=== PATIENT | female | born 1950 | race African-American/Black ===

== ENCOUNTER 2020-11-05 18:15 | Inpatient (IN) | payer MEDICARE, MEDICAID ==
[2020-11-05 19:33] LABS: Hemoglobin 5.5 g/dL (12.0-15.5); Mean Corpuscular HGB CONC 33.7 g/dL (32.0-36.0); Mean Corpuscular Hemoglobin 26.2 pg (27.0-33.0); Mean Corpuscular Volume 77.6 fl (81.6-98.3); Mean Platelet Volume 8.4 fl (7.4-10.4); Platelet Count 86 10x3/uL (150-450); RBC Distribution Width 16.5 % (11.5-14.5); White Blood Cell (WBC) Count 10.3 10x3/uL (3.5-10.5)
[2020-11-05 19:46] LABS: ALT (SGPT) 15 U/L (8-55); AST (SGOT) 10 U/L (5-34); Alkaline Phosphatase 71 U/L (40-110); Anion Gap 16 mmol/L (10-20); BUN (Urea Nitrogen) 38 mg/dL (9.8-20.1); Bilirubin, Total 0.6 mg/dL (0.2-1.2); Calc. Creatinine Clearance 0 mL/min (70-130); Calcium 7.7 mg/dL (7.8-10.44); Carbon Dioxide 26 mmol/L (23-31); Chloride 99 mmol/L (98-107); Globulin 3.4 g/dL (2.4-3.5); Glucose 154 mg/dL (80-115); Potassium 3.8 mmol/L (3.5-5.1); Protein, Total 6.4 g/dL (5.8-8.1); Sodium 137 mmol/L (136-145)
[2020-11-05 19:49] LABS: PTT 25.6 sec (22.0-33.0); Prothrombin Time 11.2 sec (9.5-12.1)
[2020-11-05 20:08] LABS: Band 3 % (5-11); Lymphocytes 9 % (21-51); Monocytes 3 % (0-10); Neutrophil 84 % (42-75); Reactive Lymphocytes 1 % (0-10)
[2020-11-05 20:09] LABS: MDiff Complete? YES
[2020-11-05 20:10] LABS: Hypochromia MODERATE=16-30 cells (100X) (0-5/hpf)
[2020-11-05 20:12] LABS: Platelet Morphology Comment Appears Decreased
[2020-11-05 20:41] LABS: Anisocytosis SLIGHT = 6-15 cells (100X) (0-5/hpf); Manual Diff?? YES
[2020-11-05 20:42] LABS: Microcytosis MODERATE=15-30 cells (100X) (0-5/hpf)
[2020-11-06] MEDS ORDERED: Bisacodyl 10 MG SUPP PR SCH (05:00)
[2020-11-06] MEDS: Montelukast Sodium 10 mg Tablet PO SCH (07:59)
[2020-11-06] MEDS: cloNIDine 0.1 MG TAB PO SCH ×2 (07:59→18:43)
[2020-11-06] MEDS: Amlodipine 5 MG TAB PO SCH (07:59)
[2020-11-06] MEDS: Multivit, Therapeutic 1 TAB PO SCH (07:59)
[2020-11-06] MEDS: Amiodarone 200 MG TAB PO SCH ×2 (07:59→20:58)
[2020-11-06] MEDS: Magnesium Oxide 400 MG TAB PO SCH (07:59)
[2020-11-06] MEDS: Folic Acid 1 MG TAB PO SCH (07:59)
[2020-11-06 13:33] LABS: SARS-CoV-2 PCR by NAA Not Detected (NotDetected)
[2020-11-06] MEDS ORDERED: Heparin 10,000 UNITS/ 10 ML VIAL FS SCH (14:15)
[2020-11-06 17:20] LABS: Iron 20 ug/dL (50-170); Iron Binding Capacity, Total 115 mcg/dL (265-497)
[2020-11-07] MEDS ORDERED: cloNIDine 0.1 MG TAB PO SCH (04:00)
[2020-11-07 05:14] LABS: #Eosinphils 0.1 10x3/uL (0.0-0.5); #Monocytes 0.3 10x3/uL (0.0-1.1); #Neutrophils 3.5 10x3/uL (1.5-8.4); %Basophils 0.2 % (0.0-2.0); %Eosinophils 1.9 % (0.0-6.0); %Lymphocytes 23.4 % (18.0-47.0); %Neutrophils 67.6 % (40.0-75.0); Hemoglobin 7.3 g/dL (12.0-15.5); Mean Corpuscular HGB CONC 34.1 g/dL (32.0-36.0); Mean Corpuscular Hemoglobin 27.2 pg (27.0-33.0); Mean Corpuscular Volume 79.9 fl (81.6-98.3); Mean Platelet Volume 8.5 fl (7.4-10.4); Platelet Count 64 10x3/uL (150-450); RBC Distribution Width 17.3 % (11.5-14.5); Red Blood Cell (RBC) Count 2.68 10x6/uL (3.90-5.03); White Blood Cell (WBC) Count 5.2 10x3/uL (3.5-10.5)
[2020-11-07 05:39] LABS: Albumin 2.6 g/dL (3.4-4.8); Anion Gap 13 mmol/L (10-20); BUN (Urea Nitrogen) 19 mg/dL (9.8-20.1); BUN/Creatinine Ratio 10.33; Calc. Creatinine Clearance 31 mL/min (70-130); Calcium 7.3 mg/dL (7.8-10.44); Carbon Dioxide 27 mmol/L (23-31); Chloride 103 mmol/L (98-107); Glucose 88 mg/dL (80-115); Potassium 3.7 mmol/L (3.5-5.1); Sodium 139 mmol/L (136-145)
[2020-11-07 05:44] LABS: Phosphorus 1.9 mg/dL (2.3-4.7)
[2020-11-07] MEDS: Amlodipine 5 MG TAB PO SCH (08:20)
[2020-11-07] MEDS: Magnesium Oxide 400 MG TAB PO SCH (08:20)
[2020-11-07] MEDS: Folic Acid 1 MG TAB PO SCH (08:20)
[2020-11-07] MEDS: Amiodarone 200 MG TAB PO SCH ×2 (08:20→21:23)
[2020-11-07] MEDS: Montelukast Sodium 10 mg Tablet PO SCH (08:20)
[2020-11-07] MEDS: Multivit, Therapeutic 1 TAB PO SCH (08:21)
[2020-11-07] MEDS: cloNIDine 0.1 MG TAB PO SCH ×2 (08:21→21:23)
[2020-11-07] MEDS ORDERED: EPOETIN ALFA-EPBX (ESRD) 10,000 UNIT/ML VIAL SC SCH (10:00)
[2020-11-07] MEDS ORDERED: Milk Of Magnesia 30 ML UDCUP PO PRN (13:05)
[2020-11-07] MEDS ORDERED: Amlodipine 5 MG TAB PO SCH (15:00)
[2020-11-07] MEDS: hydrALAZINE 25 MG TAB PO SCH ×2 (15:19→21:24)
[2020-11-07] MEDS ORDERED: Bisacodyl 10 MG SUPP PR PRN (20:54)
[2020-11-08] MEDS: Zolpidem Tartrate 5 MG TAB PO PRN ×2 (00:44→20:12)
[2020-11-08] MEDS ORDERED: Acetaminophen 325 MG TAB PO SCH (00:45)
[2020-11-08] MEDS: cloNIDine 0.1 MG TAB PO SCH ×2 (09:09→20:12)
[2020-11-08] MEDS: Multivit, Therapeutic 1 TAB PO SCH (09:09)
[2020-11-08] MEDS: Amiodarone 200 MG TAB PO SCH ×2 (09:10→20:12)
[2020-11-08] MEDS: Montelukast Sodium 10 mg Tablet PO SCH (09:10)
[2020-11-08] MEDS: Folic Acid 1 MG TAB PO SCH (09:10)
[2020-11-08] MEDS: Magnesium Oxide 400 MG TAB PO SCH (09:10)
[2020-11-08] MEDS: hydrALAZINE 25 MG TAB PO SCH ×3 (09:10→20:12)
[2020-11-08] MEDS: Amlodipine 5 MG TAB PO SCH (09:11)
[2020-11-08] MEDS: Bisacodyl 10 MG SUPP PR PRN (11:21)
[2020-11-08 15:17] LABS: Bilirubin Neg (Negative); Blood, Urine 50 (Negative); Clarity Clear (Clear); Glucose, Urine (Dipstick) Normal (Negative); Ketone, Urine Negative (Negative); Leukocyte 25 (Negative); Nitrite Negative (Negative); Protein, Urine (Dipstick) 100 mg/dl (Neg-Trace); Urobilinogen Normal mg/dL (Less than 2)
[2020-11-08 15:19] LABS: Urine Culture Reflex No No
[2020-11-08 15:39] LABS: Squamous Epithelial 0-3 HPF (0-3)
[2020-11-08 15:40] LABS: Bacteria/HPF 2+ HPF (None Seen)
[2020-11-08 19:04] LABS: 24 Hr Creatinine 179.04 mg/24 hr (710-1650); Creatinine, Urine 22.38 mg/dL (47-110)
[2020-11-08 19:26] LABS: Body Surface Area 1.7
[2020-11-08 19:48] LABS: Creatinine, Urine 22.38 mg/dL (47-110)
[2020-11-09] MEDS ORDERED: Acetaminophen 325 MG TAB PO PRN (00:57)
[2020-11-09 05:10] LABS: #Eosinphils 0.1 10x3/uL (0.0-0.5); #Monocytes 0.3 10x3/uL (0.0-1.1); #Neutrophils 2.9 10x3/uL (1.5-8.4); %Basophils 0.2 % (0.0-2.0); %Eosinophils 1.9 % (0.0-6.0); %Lymphocytes 28.1 % (18.0-47.0); %Monocytes 6.9 % (0.0-10.0); %Neutrophils 61.8 % (40.0-75.0); Hemoglobin 7.1 g/dL (12.0-15.5); Mean Corpuscular Hemoglobin 26.1 pg (27.0-33.0); Mean Platelet Volume 8.8 fl (7.4-10.4); Platelet Count 67 10x3/uL (150-450); RBC Distribution Width 17.5 % (11.5-14.5); Red Blood Cell (RBC) Count 2.72 10x6/uL (3.90-5.03); White Blood Cell (WBC) Count 4.7 10x3/uL (3.5-10.5)
[2020-11-09 05:26] LABS: Anion Gap 14 mmol/L (10-20); BUN (Urea Nitrogen) 33 mg/dL (9.8-20.1); CRP (Inflammatory) 8.02 mg/dL (= or < 0.5); Calc. Creatinine Clearance 16 mL/min (70-130); Calcium 7.1 mg/dL (7.8-10.44); Carbon Dioxide 26 mmol/L (23-31); Chloride 101 mmol/L (98-107); Glucose 92 mg/dL (80-115); Potassium 4.1 mmol/L (3.5-5.1); Sodium 137 mmol/L (136-145)
[2020-11-09] MEDS ORDERED: EPOETIN ALFA-EPBX (ESRD) 4,000 UNIT/ML VIAL IVP PRN (07:34)
[2020-11-09] MEDS: Amiodarone 200 MG TAB PO SCH ×2 (10:11→20:15)
[2020-11-09] MEDS: cloNIDine 0.1 MG TAB PO SCH ×2 (10:11→20:15)
[2020-11-09] MEDS: hydrALAZINE 25 MG TAB PO SCH ×3 (10:11→20:15)
[2020-11-09] MEDS: Amlodipine 5 MG TAB PO SCH (10:11)
[2020-11-09] MEDS: Magnesium Oxide 400 MG TAB PO SCH (10:11)
[2020-11-09] MEDS: Folic Acid 1 MG TAB PO SCH (10:11)
[2020-11-09] MEDS: Multivit, Therapeutic 1 TAB PO SCH (10:12)
[2020-11-09] MEDS: Montelukast Sodium 10 mg Tablet PO SCH (10:12)
[2020-11-09] MEDS ORDERED: Iron, Sodium Ferric Gluconate 250 MG in Sodium Chloride 0.9% 100 ML IVPB SCH (17:00)
[2020-11-09] MEDS: Zolpidem Tartrate 5 MG TAB PO PRN (20:15)
[2020-11-09] MEDS: Cefepime 1 GM in Sodium Chloride 0.9% 100 ML IVPB SCH (20:15)
[2020-11-09] MEDS: Bisacodyl 10 MG SUPP PR PRN (20:15)
[2020-11-10 05:20] LABS: Hemoglobin 7.1 g/dL (12.0-15.5); Platelet Count 77 10x3/uL (150-450)
[2020-11-10] MEDS: Magnesium Oxide 400 MG TAB PO SCH (09:38)
[2020-11-10] MEDS: Multivit, Therapeutic 1 TAB PO SCH (09:38)
[2020-11-10] MEDS: Amiodarone 200 MG TAB PO SCH ×2 (09:39→20:40)
[2020-11-10] MEDS: Amlodipine 5 MG TAB PO SCH (09:40)
[2020-11-10] MEDS: Folic Acid 1 MG TAB PO SCH (09:40)
[2020-11-10] MEDS: cloNIDine 0.1 MG TAB PO SCH ×2 (09:40→20:41)
[2020-11-10] MEDS: Montelukast Sodium 10 mg Tablet PO SCH (09:41)
[2020-11-10] MEDS: hydrALAZINE 25 MG TAB PO SCH ×3 (09:41→20:40)
[2020-11-10] MEDS: Cefepime 1 GM in Sodium Chloride 0.9% 100 ML IVPB SCH ×2 (09:42→20:39)
[2020-11-10 13:47] VITALS: BMI 28.1
[2020-11-10] MEDS: Zolpidem Tartrate 5 MG TAB PO PRN (21:04)
[2020-11-11] MEDS ORDERED: Lidocaine 2% Jelly 5 ML TUBE TOP SCH (10:00)
[2020-11-11] MEDS: hydrALAZINE 25 MG TAB PO SCH ×3 (11:16→21:25)
[2020-11-11] MEDS: Amiodarone 200 MG TAB PO SCH ×2 (11:16→21:26)
[2020-11-11] MEDS: cloNIDine 0.1 MG TAB PO SCH ×2 (11:16→21:26)
[2020-11-11] MEDS: Folic Acid 1 MG TAB PO SCH (11:16)
[2020-11-11] MEDS: Multivit, Therapeutic 1 TAB PO SCH (11:16)
[2020-11-11] MEDS: Magnesium Oxide 400 MG TAB PO SCH (11:16)
[2020-11-11] MEDS: Montelukast Sodium 10 mg Tablet PO SCH (11:16)
[2020-11-11] MEDS: Cefepime 1 GM in Sodium Chloride 0.9% 100 ML IVPB SCH ×2 (11:17→21:27)
[2020-11-11] MEDS: Amlodipine 5 MG TAB PO SCH (11:17)
[2020-11-11] MEDS: Bisacodyl 5 MG TAB PO PRN (21:25)
[2020-11-11] MEDS: Zolpidem Tartrate 5 MG TAB PO PRN (21:56)
[2020-11-12] MEDS ORDERED: Vancomycin HCl 0.75 GM in Sodium Chloride 0.9% 250 ML 250 ML IVPB SCH (08:00)
[2020-11-12] MEDS: Amlodipine 5 MG TAB PO SCH (08:43)
[2020-11-12] MEDS: Multivit, Therapeutic 1 TAB PO SCH (08:43)
[2020-11-12] MEDS: Amiodarone 200 MG TAB PO SCH (08:44)
[2020-11-12] MEDS: cloNIDine 0.1 MG TAB PO SCH (08:44)
[2020-11-12] MEDS: Folic Acid 1 MG TAB PO SCH (08:44)
[2020-11-12] MEDS: Magnesium Oxide 400 MG TAB PO SCH (08:44)
[2020-11-12] MEDS: Montelukast Sodium 10 mg Tablet PO SCH (08:44)
[2020-11-12] MEDS: Bisacodyl 5 MG TAB PO PRN (08:45)
[2020-11-12] MEDS ORDERED: VANCOMYCIN 1.25 GM/250 ML BAG 1.25 GM in Premix Bag 1 BAG IVPB SCH (09:00)
[2020-11-12] MEDS ORDERED: Meropenem 500 MG in Sodium Chloride 0.9% 100 ML IVPB SCH (09:00)
[2020-11-12] MEDS: hydrALAZINE 25 MG TAB PO SCH ×2 (09:12→16:16)
[2020-11-12] MEDS ORDERED: Vancomycin HCl 500 MG in Sodium Chloride 0.9% 100 ML IVPB SCH (14:30)
[2020-11-12] MEDS ORDERED: Vancomycin HCl 750 MG in Sodium Chloride 0.9% 250 ML 250 ML IVPB SCH (14:30)
[2020-11-12] MEDS ORDERED: Vancomycin HCl 250 MG in Sodium Chloride 0.9% 100 ML IVPB SCH (14:30)
[2020-11-12] MEDS ORDERED: Vancomycin 1 GM in Premix Bag 1 BAG IVPB SCH (14:30)
[2020-11-12] MEDS ORDERED: HOLD VANCOMYCIN FOR LEVEL >20 FS SCH (14:30)
[2020-11-12] MEDS ORDERED: Vancomycin HCl 1 GM in Sodium Chloride 0.9% 250 ML 250 ML IVPB SCH (14:45)
[2020-11-12] MEDS ORDERED: Acetaminophen 500 MG TAB PO SCH (16:15)
[2020-11-12 17:11] VITALS: BP 148/62; TEMP 98.3
== END 2020-11-12 18:31 | DRG 811 ==
LOC: CSHERS 18:15 → CSHTELE 11-06 00:44 → OBSVTOIN 11-08 09:01
PROVIDERS: ADMIT Family Medicine; ATTEND Hospitalist
PROC: 30233N1 Transfusion of Nonautologous Red Blood Cells into Peripheral Vein, Percutaneous Approach (ICD-10-PCS; principal; 2020-11-06)
PROC: 5A1D70Z Performance of Urinary Filtration, Intermittent, Less than 6 Hours Per Day (ICD-10-PCS; 2020-11-09)
PROC: 5A1D70Z Performance of Urinary Filtration, Intermittent, Less than 6 Hours Per Day (ICD-10-PCS; 2020-11-11)
PROC: 0HD7XZZ Extraction of Abdomen Skin, External Approach (ICD-10-PCS; 2020-11-11)
DX: D62 Acute posthemorrhagic anemia (principal); N18.6 End stage renal disease; T81.49XA Infection following a procedure, other surgical site, initial encounter; D59.10 Autoimmune hemolytic anemia, unspecified; I13.2 Hypertensive heart and chronic kidney disease with heart failure and with stage 5 chronic kidney disease, or end stage renal disease; N39.0 Urinary tract infection, site not specified; Z88.6 Allergy status to analgesic agent; Z88.5 Allergy status to narcotic agent; Z88.0 Allergy status to penicillin; Z88.2 Allergy status to sulfonamides; Z88.8 Allergy status to other drugs, medicaments and biological substances; J44.9 Chronic obstructive pulmonary disease, unspecified; I48.0 Paroxysmal atrial fibrillation; I50.9 Heart failure, unspecified; Z99.2 Dependence on renal dialysis; E83.51 Hypocalcemia; E83.39 Other disorders of phosphorus metabolism; L08.9 Local infection of the skin and subcutaneous tissue, unspecified; B95.62 Methicillin resistant Staphylococcus aureus infection as the cause of diseases classified elsewhere; Z20.822 Contact with and (suspected) exposure to COVID-19
CPT/HCPCS: 36415; 36430; 74160; 80048; 80053; 80069; 81001; 82570; 82575; 83540; 83550; 85014; 85018; 85025; 85049; 85610; 85730; 86140; 86850; 86860; 86870; 86880; 86900; 86901; 86922; 87070; 87077; 87086; 87186; 87205; 87635; 90935; 96372; 99285; G0257; G0378; J0692; J1644; J2185; J2916; J3370; J3490; P9016; P9054; Q5105; U0003; U0005

== ENCOUNTER 2020-11-23 21:49 | Emergency (ER) | payer MEDICARE, MEDICAID ==
[2020-11-23 23:11] LABS: #Monocytes 0.6 10x3/uL (0.0-1.1); #Neutrophils 6.3 10x3/uL (1.5-8.4); %Basophils 0.2 % (0.0-2.0); %Eosinophils 0.1 % (0.0-6.0); %Lymphocytes 12.8 % (18.0-47.0); Hemoglobin 7.9 g/dL (12.0-15.5); Mean Corpuscular HGB CONC 33.9 g/dL (32.0-36.0); Mean Corpuscular Hemoglobin 26.4 pg (27.0-33.0); Mean Corpuscular Volume 77.9 fl (81.6-98.3); Mean Platelet Volume 8.7 fl (7.4-10.4); Platelet Count 118 10x3/uL (150-450); RBC Distribution Width 18.9 % (11.5-14.5); Red Blood Cell (RBC) Count 2.99 10x6/uL (3.90-5.03); White Blood Cell (WBC) Count 8.4 10x3/uL (3.5-10.5)
[2020-11-23 23:21] LABS: ALT (SGPT) 16 U/L (8-55); AST (SGOT) 16 U/L (5-34); Albumin 3.2 g/dL (3.4-4.8); Alkaline Phosphatase 95 U/L (40-110); Anion Gap 18 mmol/L (10-20); BUN (Urea Nitrogen) 32 mg/dL (9.8-20.1); Bilirubin, Total 0.7 mg/dL (0.2-1.2); Calc. Creatinine Clearance 0 mL/min (70-130); Calcium 8.2 mg/dL (7.8-10.44); Carbon Dioxide 24 mmol/L (23-31); Chloride 101 mmol/L (98-107); Globulin 3.2 g/dL (2.4-3.5); Glucose 176 mg/dL (80-115); Lipase 33 U/L (8-78); Potassium 3.9 mmol/L (3.5-5.1); Protein, Total 6.4 g/dL (5.8-8.1); Sodium 139 mmol/L (136-145)
== END 2020-11-24 00:55 | disposition home or self-care (01) ==
LOC: CSHERS 21:49
DX: S00.83XA Contusion of other part of head, initial encounter (principal); D18.03 Hemangioma of intra-abdominal structures; E83.00 Disorder of copper metabolism, unspecified; I13.0 Hypertensive heart and chronic kidney disease with heart failure and stage 1 through stage 4 chronic kidney disease, or unspecified chronic kidney disease; N18.9 Chronic kidney disease, unspecified; D63.1 Anemia in chronic kidney disease; I50.9 Heart failure, unspecified; J44.9 Chronic obstructive pulmonary disease, unspecified; I48.91 Unspecified atrial fibrillation; W06.XXXA Fall from bed, initial encounter
CPT/HCPCS: 70450; 72125; 74177; 80053; 83690; 85025

== ENCOUNTER 2021-12-02 00:41 | Observation (INO) | payer OTHER, MEDICAID ==
[2021-12-02] MEDS ORDERED: Fentanyl 100 MCG/2 ML VIAL ONE (00:59)
[2021-12-02 01:21] LABS: Hemoglobin 12.4 g/dL (12.0-15.5); Mean Corpuscular HGB CONC 33.6 g/dL (32.0-36.0); Mean Corpuscular Hemoglobin 24.9 pg (27.0-33.0); Mean Corpuscular Volume 74.2 fl (81.6-98.3); Platelet Count 209 10x3/uL (150-450); Red Blood Cell (RBC) Count 4.97 10x6/uL (3.90-5.03); White Blood Cell (WBC) Count 11.9 10x3/uL (3.5-10.5)
[2021-12-02 01:32] LABS: ALT (SGPT) 10 U/L (8-55); AST (SGOT) 20 U/L (5-34); Albumin 3.8 g/dL (3.4-4.8); Alkaline Phosphatase 127 U/L (40-110); Anion Gap 23 mmol/L (10-20); BUN (Urea Nitrogen) 30 mg/dL (9.8-20.1); Bilirubin, Total 1.2 mg/dL (0.2-1.2); Calc. Creatinine Clearance 0 mL/min (70-130); Calcium 8.7 mg/dL (7.8-10.44); Carbon Dioxide 28 mmol/L (23-31); Chloride 95 mmol/L (98-107); Globulin 4.9 g/dL (2.4-3.5); Glucose 88 mg/dL (80-115); Lipase 19 U/L (8-78); Potassium 4.6 mmol/L (3.5-5.1); Protein, Total 8.7 g/dL (5.8-8.1); Sodium 141 mmol/L (136-145)
[2021-12-02 01:40] LABS: MDiff Complete? YES
[2021-12-02 02:39] LABS: Eosinophils 1 % (0-10); Lymphocytes 13 % (21-51); Monocytes 17 % (0-10); Neutrophil 67 % (42-75); Nucleated RBC 3 % (0)
[2021-12-02 02:42] LABS: Anisocytosis MODERATE=16-30 cells (100X) (0-5/hpf); Hypochromia MODERATE=16-30 cells (100X) (0-5/hpf); Microcytosis MODERATE=15-30 cells (100X) (0-5/hpf); Platelet Morphology Comment Appears Adequate; Schistocytes SLIGHT = 2-5 cells (100X) (0-1/hpf); Target Cells MODERATE= 6-15 cells (100X) (0-1/hpf)
[2021-12-02] MEDS ORDERED: Acetaminophen 650 MG Suppository PR PRN (03:25)
[2021-12-02] MEDS ORDERED: Morphine 4 MG/ML VIAL SLOW IVP PRN (03:28)
[2021-12-02] MEDS ORDERED: Dextrose 5 %-0.45 % NaCl 1,000 ML IV SCH (03:30)
[2021-12-02] MEDS ORDERED: Nitroglycerin 2% Ointment 1 INCH/1 GM Packet TOP SCH (03:30)
[2021-12-02] MEDS ORDERED: Labetalol HCl 100 MG/20 ML VIAL SLOW IVP PRN (03:30)
[2021-12-02 04:34] VITALS: BMI 29.0
[2021-12-02] MEDS ORDERED: Mineral Oil ENEMA PR SCH (05:15)
[2021-12-02 05:16] LABS: Mean Corpuscular HGB CONC 33.2 g/dL (32.0-36.0); Mean Corpuscular Hemoglobin 24.6 pg (27.0-33.0); Mean Corpuscular Volume 74.1 fl (81.6-98.3); Platelet Count 218 10x3/uL (150-450); RBC Distribution Width 20.5 % (11.5-14.5); Red Blood Cell (RBC) Count 4.87 10x6/uL (3.90-5.03); White Blood Cell (WBC) Count 13.4 10x3/uL (3.5-10.5)
[2021-12-02 05:42] LABS: MDiff Complete? YES
[2021-12-02 05:51] LABS: Eosinophils 1 % (0-10); Lymphocytes 14 % (21-51); Monocytes 16 % (0-10); Neutrophil 67 % (42-75); Nucleated RBC 3 % (0); Reactive Lymphocytes 2 % (0-10)
[2021-12-02 05:52] LABS: Anisocytosis MODERATE=16-30 cells (100X) (0-5/hpf); Hypochromia MODERATE=16-30 cells (100X) (0-5/hpf); Microcytosis MODERATE=15-30 cells (100X) (0-5/hpf); Platelet Morphology Comment Appears Adequate; Schistocytes SLIGHT = 2-5 cells (100X) (0-1/hpf); Target Cells MODERATE= 6-15 cells (100X) (0-1/hpf)
[2021-12-02 07:35] LABS: SARS-CoV-2 NAA Rapid Test Not Detected (NotDetected)
[2021-12-02] MEDS ORDERED: Amiodarone 200 MG TAB PO SCH (09:00)
[2021-12-02] MEDS ORDERED: cloNIDine 0.1mg/24 Hour PATCH TD SCH (09:00)
[2021-12-02] MEDS: Mometasone/Formoterol 200/5 60 PUFF INH SCH ×2 (10:24→19:49)
[2021-12-02] MEDS: Heparin 5,000 UNITS/ML VIAL SC SCH ×3 (11:15→21:28)
[2021-12-02] MEDS: Amiodarone 200 MG TAB PO SCH ×2 (11:15→21:28)
[2021-12-02] MEDS: Famotidine/PF 20 mg/2ml Vial SLOW IVP SCH (11:15)
[2021-12-02] MEDS: Ondansetron PF 4 MG/2 ML Vial IVP PRN (12:01)
[2021-12-02 12:40] LABS: Anion Gap 21 mmol/L (10-20); BUN (Urea Nitrogen) 40 mg/dL (9.8-20.1); Calc. Creatinine Clearance 10 mL/min (70-130); Calcium 8.8 mg/dL (7.8-10.44); Carbon Dioxide 28 mmol/L (23-31); Chloride 96 mmol/L (98-107); Glucose 75 mg/dL (80-115); Potassium 4.9 mmol/L (3.5-5.1); Sodium 140 mmol/L (136-145)
[2021-12-02] MEDS: hydrALAZINE 20 MG/ML VIAL SLOW IVP PRN (21:29)
[2021-12-03 05:04] LABS: ALT (SGPT) 10 U/L (8-55); AST (SGOT) 18 U/L (5-34); Albumin 3.4 g/dL (3.4-4.8); Alkaline Phosphatase 109 U/L (40-110); Anion Gap 19 mmol/L (10-20); BUN (Urea Nitrogen) 46 mg/dL (9.8-20.1); Bilirubin, Total 0.9 mg/dL (0.2-1.2); Calc. Creatinine Clearance 9 mL/min (70-130); Calcium 7.9 mg/dL (7.8-10.44); Carbon Dioxide 29 mmol/L (23-31); Chloride 95 mmol/L (98-107); Globulin 4.2 g/dL (2.4-3.5); Glucose 75 mg/dL (80-115); Potassium 4.4 mmol/L (3.5-5.1); Protein, Total 7.6 g/dL (5.8-8.1); Sodium 139 mmol/L (136-145)
[2021-12-03] MEDS: Mometasone/Formoterol 200/5 60 PUFF INH SCH ×2 (08:00→19:30)
[2021-12-03] MEDS ORDERED: cloNIDine 0.1mg/24 Hour PATCH TD SCH (09:00)
[2021-12-03] MEDS: Amiodarone 200 MG TAB PO SCH ×2 (09:16→21:58)
[2021-12-03] MEDS: Amlodipine 5 MG TAB PO SCH (09:16)
[2021-12-03] MEDS: Famotidine/PF 20 mg/2ml Vial SLOW IVP SCH (09:17)
[2021-12-03] MEDS: Heparin 5,000 UNITS/ML VIAL SC SCH ×3 (09:17→21:56)
[2021-12-03 09:19] LABS: #Basophils 0.1 10x3/uL (0.0-0.2); #Eosinphils 0.7 10x3/uL (0.0-0.5); #Monocytes 1.9 10x3/uL (0.0-1.1); %Basophils 0.7 % (0.0-2.0); %Eosinophils 5.1 % (0.0-6.0); %Lymphocytes 32.5 % (18.0-47.0); %Monocytes 14.4 % (0.0-10.0); Hemoglobin 11.1 g/dL (12.0-15.5); Mean Corpuscular HGB CONC 33.4 g/dL (32.0-36.0); Mean Corpuscular Hemoglobin 24.8 pg (27.0-33.0); Mean Corpuscular Volume 74.3 fl (81.6-98.3); Mean Platelet Volume 11.1 fl (7.4-10.4); Platelet Count 269 10x3/uL (150-450); RBC Distribution Width 20.2 % (11.5-14.5); Red Blood Cell (RBC) Count 4.47 10x6/uL (3.90-5.03); White Blood Cell (WBC) Count 12.8 10x3/uL (3.5-10.5)
[2021-12-03] MEDS ORDERED: Heparin 10,000 UNITS/ 10 ML VIAL SLOW IVP PRN (12:31)
[2021-12-03] MEDS: hydrALAZINE 20 MG/ML VIAL SLOW IVP PRN (21:51)
[2021-12-03] MEDS ORDERED: Simethicone Chewable 80 MG TAB PO SCH (23:15)
[2021-12-04] MEDS: hydrALAZINE 20 MG/ML VIAL SLOW IVP PRN (01:29)
[2021-12-04] MEDS ORDERED: Simethicone Chewable 80 MG TAB PO SCH (02:00)
[2021-12-04] MEDS ORDERED: cloNIDine 0.1 MG TAB PO SCH ×2 (02:00→09:00)
[2021-12-04 04:28] LABS: Hemoglobin 10.6 g/dL (12.0-15.5); Mean Corpuscular Hemoglobin 24.5 pg (27.0-33.0); Mean Corpuscular Volume 74.3 fl (81.6-98.3); Mean Platelet Volume 11.1 fl (7.4-10.4); Platelet Count 226 10x3/uL (150-450); RBC Distribution Width 20.2 % (11.5-14.5); Red Blood Cell (RBC) Count 4.32 10x6/uL (3.90-5.03); White Blood Cell (WBC) Count 9.5 10x3/uL (3.5-10.5)
[2021-12-04 04:34] LABS: Anion Gap 15 mmol/L (10-20); BUN (Urea Nitrogen) 21 mg/dL (9.8-20.1); Calc. Creatinine Clearance 13 mL/min (70-130); Calcium 8.1 mg/dL (7.8-10.44); Carbon Dioxide 29 mmol/L (23-31); Chloride 97 mmol/L (98-107); Glucose 84 mg/dL (80-115); Potassium 3.9 mmol/L (3.5-5.1); Sodium 137 mmol/L (136-145)
[2021-12-04] MEDS: Mometasone/Formoterol 200/5 60 PUFF INH SCH (05:43)
[2021-12-04 06:03] LABS: MDiff Complete? YES
[2021-12-04 06:07] LABS: Band 2 % (5-11); Eosinophils 1 % (0-10); Lymphocytes 18 % (21-51); Monocytes 20 % (0-10); Neutrophil 54 % (42-75); Nucleated RBC 2 % (0); Reactive Lymphocytes 5 % (0-10)
[2021-12-04 06:08] LABS: Anisocytosis SLIGHT = 6-15 cells (100X) (0-5/hpf); Hypochromia MARKED = >30 cells (100X) (0-5/hpf); Microcytosis SLIGHT = 6-15 cells (100X) (0-5/hpf)
[2021-12-04 06:09] LABS: Platelet Morphology Comment Appears Adequate; Poikilocytosis SLIGHT = 6-15 cells (100X) (0-5/hpf); Target Cells MARKED = >16 cells (100X) (0-1/hpf)
[2021-12-04] MEDS: Heparin 5,000 UNITS/ML VIAL SC SCH (08:29)
[2021-12-04] MEDS: Amiodarone 200 MG TAB PO SCH (08:30)
[2021-12-04] MEDS: Amlodipine 5 MG TAB PO SCH (08:30)
[2021-12-04] MEDS: Ondansetron PF 4 MG/2 ML Vial IVP PRN (08:41)
[2021-12-04] MEDS ORDERED: Famotidine 20 MG TAB PO SCH (09:00)
[2021-12-04 11:52] VITALS: BP 151/67; TEMP 97.9
== END 2021-12-04 15:17 | disposition home or self-care (01) ==
LOC: CSHERS 00:41 → CSHTELE 03:52
PROVIDERS: ADMIT Student in an Organized Health Care Education/Training Program; ATTEND Internal Medicine
DX: K56.609 Unspecified intestinal obstruction, unspecified as to partial versus complete obstruction (principal); I16.0 Hypertensive urgency; I13.2 Hypertensive heart and chronic kidney disease with heart failure and with stage 5 chronic kidney disease, or end stage renal disease; I50.9 Heart failure, unspecified; N18.6 End stage renal disease; J96.11 Chronic respiratory failure with hypoxia; Z99.2 Dependence on renal dialysis; K59.00 Constipation, unspecified; Z79.899 Other long term (current) drug therapy; Z99.81 Dependence on supplemental oxygen; D63.1 Anemia in chronic kidney disease; D59.10 Autoimmune hemolytic anemia, unspecified; Z20.822 Contact with and (suspected) exposure to COVID-19
CPT/HCPCS: 74176; 74250; 80048 ×2; 80053; 83690; 85025 ×2; 94640 ×2; 94664; 94760 ×2; 96374; 96375; 96376 ×2; 99285; G0378 ×4; U0002; 36415; 84443; 90935; G0257; J0360; J1644; J2405; J3010; J7042; S0028

== ENCOUNTER 2021-12-27 03:56 | Inpatient (IN) | payer OTHER, MEDICAID ==
[2021-12-27 04:34] LABS: #Basophils 0.1 10x3/uL (0.0-0.2); #Eosinphils 0.6 10x3/uL (0.0-0.5); #Monocytes 2.2 10x3/uL (0.0-1.1); #Neutrophils 10.3 10x3/uL (1.5-8.4); %Basophils 0.4 % (0.0-2.0); %Eosinophils 3.8 % (0.0-6.0); %Lymphocytes 15.3 % (18.0-47.0); %Monocytes 14.2 % (0.0-10.0); %Neutrophils 65.8 % (40.0-75.0); Hemoglobin 9.8 g/dL (12.0-15.5); Mean Corpuscular HGB CONC 33.8 g/dL (32.0-36.0); Mean Corpuscular Hemoglobin 25.4 pg (27.0-33.0); Mean Corpuscular Volume 75.1 fl (81.6-98.3); Mean Platelet Volume 10.2 fl (7.4-10.4); Platelet Count 198 10x3/uL (150-450); RBC Distribution Width 19.2 % (11.5-14.5); Red Blood Cell (RBC) Count 3.86 10x6/uL (3.90-5.03); White Blood Cell (WBC) Count 15.6 10x3/uL (3.5-10.5)
[2021-12-27 04:42] LABS: ALT (SGPT) 7 U/L (8-55); AST (SGOT) 20 U/L (5-34); Albumin 3.6 g/dL (3.4-4.8); Alkaline Phosphatase 122 U/L (40-110); Anion Gap 20 mmol/L (10-20); BUN (Urea Nitrogen) 61 mg/dL (9.8-20.1); Bilirubin, Total 1.2 mg/dL (0.2-1.2); Calc. Creatinine Clearance 0 mL/min (70-130); Calcium 7.3 mg/dL (7.8-10.44); Carbon Dioxide 25 mmol/L (23-31); Chloride 100 mmol/L (98-107); Globulin 4.1 g/dL (2.4-3.5); Glucose 89 mg/dL (80-115); Potassium 6.4 mmol/L (3.5-5.1); Protein, Total 7.7 g/dL (5.8-8.1); Sodium 139 mmol/L (136-145)
[2021-12-27] MEDS ORDERED: Calcium Gluc 4.6 MEQ/10 ML (100 MG/ML) ONE (05:02)
[2021-12-27] MEDS ORDERED: Dextrose 50% Abboject 50 ML SYRINGE ONE (05:02)
[2021-12-27] MEDS ORDERED: Insulin Regular 300 UNITS/3 ML VIAL ONE (05:03)
[2021-12-27] MEDS ORDERED: Sodium Bicarb 50 MEQ/50 ML VIAL ONE (05:04)
[2021-12-27] MEDS ORDERED: hydrALAZINE 20 MG/ML VIAL ONE (05:53)
[2021-12-27] MEDS ORDERED: Nitroglycerin 2% Ointment 1 INCH/1 GM Packet ONE (06:37)
[2021-12-27] MEDS ORDERED: Amlodipine 5 MG TAB ONE (06:39)
[2021-12-27] MEDS ORDERED: Heparin 10,000 UNITS/ 10 ML VIAL SLOW IVP PRN (07:41)
[2021-12-27] MEDS ORDERED: Ondansetron PF 4 MG/2 ML Vial IVP PRN (10:42)
[2021-12-27] MEDS ORDERED: Acetaminophen 650 MG Suppository PR PRN (10:42)
[2021-12-27] MEDS ORDERED: Ondansetron ODT 4 MG TAB PO PRN (10:42)
[2021-12-27 11:34] LABS: Lactic Acid 1.3 mmol/L (0.5-2.2)
[2021-12-27 11:44] LABS: Troponin I 0.118 ng/mL (< 0.028)
[2021-12-27 11:53] LABS: ALT (SGPT) 8 U/L (8-55); AST (SGOT) 26 U/L (5-34); Albumin 3.8 g/dL (3.4-4.8); Alkaline Phosphatase 129 U/L (40-110); Anion Gap 19 mmol/L (10-20); BUN (Urea Nitrogen) 26 mg/dL (9.8-20.1); Bilirubin, Total 1.9 mg/dL (0.2-1.2); Calc. Creatinine Clearance 0 mL/min (70-130); Calcium 8.8 mg/dL (7.8-10.44); Carbon Dioxide 25 mmol/L (23-31); Chloride 96 mmol/L (98-107); Globulin 4.3 g/dL (2.4-3.5); Glucose 82 mg/dL (80-115); Potassium 4.6 mmol/L (3.5-5.1); Protein, Total 8.1 g/dL (5.8-8.1); Sodium 135 mmol/L (136-145)
[2021-12-27 11:57] LABS: Hemoglobin 10.9 g/dL (12.0-15.5); Mean Corpuscular Hemoglobin 25.2 pg (27.0-33.0); Mean Corpuscular Volume 74.1 fl (81.6-98.3); Mean Platelet Volume 10.5 fl (7.4-10.4); Platelet Count 195 10x3/uL (150-450); RBC Distribution Width 20.2 % (11.5-14.5); Red Blood Cell (RBC) Count 4.33 10x6/uL (3.90-5.03); White Blood Cell (WBC) Count 16.4 10x3/uL (3.5-10.5)
[2021-12-27 12:17] LABS: Band 1 % (5-11); Lymphocytes 8 % (21-51); Monocytes 7 % (0-10); Nucleated RBC 8 % (0); Reactive Lymphocytes 10 % (0-10)
[2021-12-27 12:20] LABS: Anisocytosis SLIGHT = 6-15 cells (100X) (0-5/hpf); Macrocytosis SLIGHT = 6-15 cells (100X) (0-5/hpf)
[2021-12-27 12:21] LABS: Target Cells MODERATE= 6-15 cells (100X) (0-1/hpf)
[2021-12-27 12:23] LABS: Platelet Morphology Comment Appears Adequate
[2021-12-27 12:31] VITALS: BMI 30.8
[2021-12-27 13:01] LABS: MDiff Complete? YES; Neutrophil 74 % (42-75)
[2021-12-27] MEDS ORDERED: NIFEdipine XL 60 MG TAB PO SCH (13:30)
[2021-12-27] MEDS ORDERED: Mometasone 100 MCG/Formoterol 5 MCG 120 PUFF INHALER INH SCH (18:30)
[2021-12-27] MEDS: Mometasone/Formoterol 60 PUFF AER INH SCH (19:25)
[2021-12-27] MEDS: Acetaminophen 325 MG TAB PO PRN (20:28)
[2021-12-27] MEDS: Amiodarone 200 MG TAB PO SCH (20:29)
[2021-12-27] MEDS ORDERED: cloNIDine 0.1 MG TAB PO SCH (21:00)
[2021-12-28] MEDS: Acetaminophen 325 MG TAB PO PRN (03:58)
[2021-12-28 05:24] LABS: Hemoglobin 10.1 g/dL (12.0-15.5); Mean Corpuscular HGB CONC 34.5 g/dL (32.0-36.0); Mean Corpuscular Hemoglobin 25.4 pg (27.0-33.0); Mean Corpuscular Volume 73.8 fl (81.6-98.3); Mean Platelet Volume 11.5 fl (7.4-10.4); Platelet Count 172 10x3/uL (150-450); Red Blood Cell (RBC) Count 3.97 10x6/uL (3.90-5.03); White Blood Cell (WBC) Count 12.1 10x3/uL (3.5-10.5)
[2021-12-28 05:40] LABS: Anion Gap 19 mmol/L (10-20); BUN (Urea Nitrogen) 35 mg/dL (9.8-20.1); Calc. Creatinine Clearance 9 mL/min (70-130); Calcium 8.1 mg/dL (7.8-10.44); Carbon Dioxide 27 mmol/L (23-31); Chloride 98 mmol/L (98-107); Glucose 72 mg/dL (80-115); Potassium 4.8 mmol/L (3.5-5.1); Sodium 139 mmol/L (136-145)
[2021-12-28 05:44] LABS: MDiff Complete? YES; Manual Diff?? YES
[2021-12-28 05:47] LABS: Band 1 % (5-11); Eosinophils 8 % (0-10); Lymphocytes 14 % (21-51); Monocytes 18 % (0-10); Neutrophil 50 % (42-75); Nucleated RBC 6 % (0); Reactive Lymphocytes 8 % (0-10)
[2021-12-28 05:50] LABS: Anisocytosis SLIGHT = 6-15 cells (100X) (0-5/hpf); Hypochromia SLIGHT = 6-15 cells (100X) (0-5/hpf); Macrocytosis SLIGHT = 6-15 cells (100X) (0-5/hpf); Microcytosis SLIGHT = 6-15 cells (100X) (0-5/hpf); Polychromasia SLIGHT = 2-3 cells (100X) (0-2/hpf); Target Cells SLIGHT = 2-5 cells (100X) (0-1/hpf); Toxic Granulation SLIGHT; Vacuoles SLIGHT
[2021-12-28] MEDS: Mometasone/Formoterol 60 PUFF AER INH SCH ×2 (07:58→18:32)
[2021-12-28] MEDS: Polyethylene Glycol 3350 17 GM Packet PO SCH (08:56)
[2021-12-28] MEDS: Magnesium Oxide 400 MG TAB PO SCH (08:56)
[2021-12-28] MEDS: Folic Acid 1 MG TAB PO SCH (08:56)
[2021-12-28] MEDS: Multivit, Therapeutic 1 TAB PO SCH (08:57)
[2021-12-28] MEDS: Montelukast Sodium 10 mg Tablet PO SCH (08:57)
[2021-12-28] MEDS: Amiodarone 200 MG TAB PO SCH ×2 (08:57→20:08)
[2021-12-28] MEDS: NIFEdipine XL 60 MG TAB PO SCH ×2 (08:58→20:08)
[2021-12-28] MEDS ORDERED: Amlodipine 5 MG TAB PO SCH (09:00)
[2021-12-29 05:52] LABS: Anion Gap 19 mmol/L (10-20); BUN (Urea Nitrogen) 49 mg/dL (9.8-20.1); Calc. Creatinine Clearance 7 mL/min (70-130); Calcium 7.3 mg/dL (7.8-10.44); Carbon Dioxide 24 mmol/L (23-31); Chloride 100 mmol/L (98-107); Glucose 82 mg/dL (80-115); Potassium 5.3 mmol/L (3.5-5.1); Sodium 138 mmol/L (136-145)
[2021-12-29 06:43] LABS: #Basophils 0.1 10x3/uL (0.0-0.2); #Eosinphils 0.7 10x3/uL (0.0-0.5); #Monocytes 2.3 10x3/uL (0.0-1.1); #Neutrophils 5.4 10x3/uL (1.5-8.4); %Basophils 0.9 % (0.0-2.0); %Eosinophils 5.9 % (0.0-6.0); %Lymphocytes 24.6 % (18.0-47.0); %Monocytes 20.2 % (0.0-10.0); Hemoglobin 9.6 g/dL (12.0-15.5); Mean Corpuscular HGB CONC 33.8 g/dL (32.0-36.0); Mean Corpuscular Hemoglobin 25.1 pg (27.0-33.0); Mean Corpuscular Volume 74.3 fl (81.6-98.3); Mean Platelet Volume 11.1 fl (7.4-10.4); Platelet Count 188 10x3/uL (150-450); RBC Distribution Width 19.9 % (11.5-14.5); Red Blood Cell (RBC) Count 3.82 10x6/uL (3.90-5.03); White Blood Cell (WBC) Count 11.2 10x3/uL (3.5-10.5)
[2021-12-29 06:44] LABS: Manual Diff?? YES
[2021-12-29 06:47] LABS: Band 3 % (5-11); Eosinophils 2 % (0-10); Lymphocytes 15 % (21-51); Monocytes 15 % (0-10); Neutrophil 54 % (42-75); Nucleated RBC 3 % (0); Reactive Lymphocytes 10 % (0-10)
[2021-12-29 06:48] LABS: Anisocytosis SLIGHT = 6-15 cells (100X) (0-5/hpf); Platelet Morphology Comment Appears Adequate
[2021-12-29 06:49] LABS: Hypochromia SLIGHT = 6-15 cells (100X) (0-5/hpf); Macrocytosis SLIGHT = 6-15 cells (100X) (0-5/hpf); Microcytosis SLIGHT = 6-15 cells (100X) (0-5/hpf); Polychromasia SLIGHT = 2-3 cells (100X) (0-2/hpf); Schistocytes SLIGHT = 2-5 cells (100X) (0-1/hpf); Target Cells MODERATE= 6-15 cells (100X) (0-1/hpf)
[2021-12-29 06:50] LABS: Stomatocytes SLIGHT = 2-5 cells (100X) (0-1/hpf)
[2021-12-29] MEDS: Mometasone/Formoterol 60 PUFF AER INH SCH (08:23)
[2021-12-29] MEDS: Amiodarone 200 MG TAB PO SCH (12:16)
[2021-12-29] MEDS: Montelukast Sodium 10 mg Tablet PO SCH (12:16)
[2021-12-29] MEDS: NIFEdipine XL 60 MG TAB PO SCH (12:17)
[2021-12-29] MEDS: Folic Acid 1 MG TAB PO SCH (12:17)
[2021-12-29] MEDS: Polyethylene Glycol 3350 17 GM Packet PO SCH (12:17)
[2021-12-29] MEDS: Magnesium Oxide 400 MG TAB PO SCH (12:17)
[2021-12-29] MEDS: Multivit, Therapeutic 1 TAB PO SCH (12:17)
[2021-12-29 15:35] VITALS: BP 160/71; TEMP 98.3
== END 2021-12-29 16:30 | disposition home or self-care (01) | DRG 291 ==
LOC: SUATTDRO 03:56 → CSHERS 03:56 → CSHTELE 11:14
PROVIDERS: ADMIT Hospitalist; ATTEND Hospitalist
PROC: 5A1D70Z Performance of Urinary Filtration, Intermittent, Less than 6 Hours Per Day (ICD-10-PCS; principal; 2021-12-27)
DX: I13.2 Hypertensive heart and chronic kidney disease with heart failure and with stage 5 chronic kidney disease, or end stage renal disease (principal); N18.6 End stage renal disease; J96.01 Acute respiratory failure with hypoxia; I50.31 Acute diastolic (congestive) heart failure; J98.11 Atelectasis; I16.1 Hypertensive emergency; E87.70 Fluid overload, unspecified; E11.22 Type 2 diabetes mellitus with diabetic chronic kidney disease; J44.9 Chronic obstructive pulmonary disease, unspecified; E87.6 Hypokalemia; E66.9 Obesity, unspecified; I48.0 Paroxysmal atrial fibrillation; Z20.822 Contact with and (suspected) exposure to COVID-19; E87.5 Hyperkalemia; D63.1 Anemia in chronic kidney disease; Z99.81 Dependence on supplemental oxygen; Z99.2 Dependence on renal dialysis; Z88.5 Allergy status to narcotic agent; Z88.2 Allergy status to sulfonamides; Z88.8 Allergy status to other drugs, medicaments and biological substances; Z79.899 Other long term (current) drug therapy; Z90.710 Acquired absence of both cervix and uterus; Z88.0 Allergy status to penicillin; Z68.30 Body mass index [BMI] 30.0-30.9, adult
CPT/HCPCS: 36415; 36416; 71045; 71275; 80048; 80053; 82306; 83605; 83880; 84484; 85025; 85379; 90935; 93005; 93010; 93306; 94664; 94760; 96374; 96375; G0257; J0360; J0610; J1644; J1815; J7999; U0003; U0005